=== PATIENT | male | born 1990 | race Caucasian/White ===

== ENCOUNTER 2018-05-09 12:42 | Emergency (ER) | payer SELFPAY ==
[~2018-05-09] VITALS: Ht 182.9 cm; Wt 67.0 kg
[2018-05-09 12:44] VITALS: BP 154/90
[2018-05-09] MEDS ORDERED: LORAZEPAM 1MG TABLET PO ONE (14:15)
== END 2018-05-09 15:25 | disposition home or self-care (01) ==
LOC: ER 12:42
DX: F41.1 Generalized anxiety disorder (principal); F43.0 Acute stress reaction; R45.89 Other symptoms and signs involving emotional state; R03.0 Elevated blood-pressure reading, without diagnosis of hypertension; R19.7 Diarrhea, unspecified; G40.909 Epilepsy, unspecified, not intractable, without status epilepticus; F17.210 Nicotine dependence, cigarettes, uncomplicated; Z88.8 Allergy status to other drugs, medicaments and biological substances
CPT/HCPCS: 99284